=== PATIENT | female | born 1955 | race Caucasian/White ===

== ENCOUNTER 2017-10-31 08:39 | Emergency (ER) | payer OTHER, BC ==
[~2017-10-31] VITALS: Ht 167.6 cm; Wt 56.7 kg
--- OUTSIDE RECORDS SUMMARY | 2017-10-31 08:45 | XMS REPORT | Clinical Summary ---
Author Author User, LYNDA Hubbard [facility] Address Unknown Phone Allergies, Adverse Reactions, Alerts Allergy Name Reaction Description Start Date Severity Status Provider SULFA Critical Active Lore Hughes Conditions or Problems Problem Name Problem Code Onset Date Status Entry Date Provider Comment Standard Description Annotate WELL WOMAN V70.0 Resolved Lore Hughes Routine general medical examination at a health care facility MENOPAUSAL SYNDROME 627.0 Resolved Lore Hughes Premenopausal menorrhagia NECK PAIN 723.1 Resolved Lore Hughes Cervicalgia CERVICAL RADICULOPATHY 723.4 Resolved Lore Hughes Brachial neuritis or radiculitis NOS SCOLIOSIS, 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 Lore Hughes Scoliosis [and kyphoscoliosis], idiopathic DIZZINESS 780.4 Resolved Lore Hughes Dizziness and giddiness DEFECT, 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 Lore Hughes Other and unspecified coagulation defects MENORRHAGIA 626.2 Resolved Lore Hughes Excessive or frequent menstruation ANEMIA NOS 285.9 Active Lore Hughes Anemia, unspecified HYPERCHOLESTEROLEMIA 272.0 Active Lore Hughes Pure hypercholesterolemia GERD 530.81 Resolved Lore Hughes Esophageal reflux ABDOMINAL PAIN, GENERALIZED 789.07 Resolved Lore Hughes Abdominal pain, generalized SINUSITIS, SPHENOIDAL, ACUTE 461.3 Resolved Lore Hughes Acute sphenoidal sinusitis HERPES LABIALIS 054.9 Resolved Lore Hughes Herpes simplex without mention of complication HYPERGLYCEMIA, MILD 790.6 Resolved Lore Hughes Other abnormal blood chemistry ELBOW PAIN 719.42 Resolved Lore Hughes Pain in joint involving upper arm POLYARTHRALGIA 719.49 Resolved Lore Hughes Pain in joint involving multiple sites HEALTH SCREENING V70.0 Inactive Lore Hughes Routine general medical examination at a health care facility HYPERTENSION 401.1 Active Lore Hughes Benign essential hypertension EDEMA LEG 782.3 Active Lore Hughes Edema THYROID NODULE 241.0 Active Lore Hughes Nontoxic uninodular goiter MENOPAUSAL SYNDROME 627.0 Active Lore Hughes Premenopausal menorrhagia HEADACHE 784.0 Active Lore Hughes Headache HEAD INJURY, UNSPECIFIED 959.01 Active Lore Hughes Head injury, unspecified Medication List Medication Instructions Start Date Stop Date Generic Name ND Status Provider Patient Instruction PREMPRO 0.3-1.5 MG TABS 1 PO daily CONJ ESTROG-MEDROXYPROGEST AMBROCIO 76527056470 Active Lore Hughes SYNTHROID 137 MCG TABS 1 po daily LEVOTHYROXINE SODIUM 17074651473 Active Aisha Storm HYDROCHLOROTHIAZIDE 25 MG TAB 1 PO QD HYDROCHLOROTHIAZIDE 31699618750 Active Lore Hughes PREMARIN 0.625 MG TAB 1 PO daily as directed ESTROGENS CONJUGATED 18968284641 No Longer Active Loreobed Hughes TRINESSA (28) 0.18/0.215/0.25 MG-35 MCG TABS 1 po daily NORGESTIM-ETH ESTRAD TRIPHASIC 26338788777 No Longer Active Loreobed Hughes PEPCID 20 MG TAB 1 PO BID prn FAMOTIDINE 52630359131 Active Loreobed Hughes FLONASE 50 MCG/DOSE INHALANT 2 puffs each nostril daily FLONASE 50 MCG/DOSE INHALANT No Longer Active Loreobed Hughes OMEPRAZOLE 20 MG CPDR 1 PO daily OMEPRAZOLE 25205465217 No Longer Active Loreobed Hughes CARAFATE 1 GM TABS 1 PO 30 minutes before meals and at bedtime SUCRALFATE 59503867730 No Longer Active Loreobed Hughes ALBUTEROL 90 MCG/ACT AERS 2 puffs Q4-6hrs prn ALBUTEROL No Longer Active Lore Hughes CALTRATE 600 PLUS-VIT D 600-200 MG-IU TABS 1 PO DAILY CALCIUM-VITAMIN D Active Loreobed Hughes TRI-SPRINTEC 0.18/0.215/0.25 MG-35 MCG TABS 1 PO daily NORGESTIM-ETH ESTRAD TRIPHASIC 70491766239 No Longer Active Lore Hughes LIDOCAINE VISCOUS 2 % SOLN apply to small amount of lidocaine to affected areas TID prn LIDOCAINE HCL 85873928586 No Longer Active Lore Hughes FAMVIR 250 MG TABS 1 PO TID FAMCICLOVIR 43495793054 No Longer Active Sheri Gorman AUGMENTIN 500-125 MG TAB 1 PO BID AMOXICILLIN-POT CLAVULANATE 67185156679 No Longer Active Lore Hughes PREDNISONE 20 MG TAB 2 pills at once for 2 days then 1 pill daily for 2 days PREDNISONE 46261174807 No Longer Active Lore KULKARNI NASAL SPRAY (DEXAMETHASONE, GENTAMICIN, SALINE) 2 puffs each nostril BID for [address] KULKARNI NASAL SPRAY ( DEXAMETHASONE, GENTAMICIN, SALINE) No Longer Active Lore Hughes DIFLUCAN 100 MG TAB 1 po daily as directed FLUCONAZOLE 31681167656 No Longer Active Lore Hughes TERAZOL 7 0.4 % CREA 1 applicator full per vagina QHS for 7 days TERCONAZOLE VAGINAL 93152463875 No Longer Active Lore Hughes CLARITIN 10 MG TAB 1 PO daily LORATADINE 71920152993 Active Loreobed Hughes NEXIUM 40 MG CPDR 1 PO BID ESOMEPRAZOLE MAGNESIUM 60422331778 No Longer Active Lore Hughes WILTON-D 12 HOUR 60-120 MG TB12 1 po BID prn FEXOFENADINE- PSEUDOEPHEDRINE 20003581463 No Longer Active Lore Hughes WILTON 60 MG TABS 1 po daily FEXOFENADINE HCL 51622097292 No Longer Active Lore Hughes Immunizations Vaccine Administration Date Value Standard Description Influenza vaccine given done influenza virus vaccine, unspecified formulation Influenza vaccine given Done influenza virus vaccine, unspecified formulation Influenza vaccine given done at [facility] [place] influenza virus vaccine, unspecified formulation Vital Signs Date Name Value Unit Range Description blood pressure, diastolic - 8462-4 78 mm[Hg] BP tamayo blood pressure, systolic - 8480-6 126 mm[Hg] BP sys pulse rate E&M - 8867-4 68 /min Heart rate respiratory rate E&M - 9279-1 14 /min Resp rate temperature E&M 98.2 [degF] Body temperature weight E&M - 3141-9 142 [lb_av] Weight Measured blood pressure, diastolic - 8462-4 74 mm[Hg] BP tamayo blood pressure, systolic - 8480-6 126 mm[Hg] BP sys pulse rate E&M - 8867-4 80 /min Heart rate respiratory rate E&M - 9279-1 14 /min Resp rate temperature E&M 98.6 [degF] Body temperature Diagnostic Results Date Name Value Unit Range Description Clinical Lists Update: BUN,CREATININE - Chemistry Estimated Glomerular Filtration Rate (calc) 78 mL/min/1.73m2 urea nitrogen, blood 12 mg/dL creatinine, serum 0.76 mg/dL Encounters Code Encounter Date Provider Facility CPT-37875 Ofc Vst, Est Level IV 15:30:52 GLOBAL PROGRAM MANAGER Lore Hughes [facility] CPT-43960 Ofc Vst, Est Level III 15:05:17 GLOBAL PROGRAM MANAGER Lore Hughes DO, FACP CPT-01837 Ofc Vst, Est Level IV 13:18:37 CDT Lore Hughes DO, FACP CPT-37876 Ofc Vst, Est Level IV 19:48:51 GLOBAL PROGRAM MANAGER Lore Hguhes [facility] CPT-44715 Ofc Vst, Est Level IV 11:41:35 CDT Lore Hughes DO, FACP CPT-78347 Ofc Vst, Est Level III 13:26:49 GLOBAL PROGRAM MANAGER Lore Hughes [facility] CPT-97037 Ofc Vst, Est Level III 14:10:50 CDT Lore Hughes [facility] CPT-01397 Ofc Vst, Est Level III 12:23:22 CDT Lore Hughes DO, FACP CPT-85553 Ofc Vst, Est Level IV 13:06:23 CDT Lore Queenie Hughes Lore S Hughes, DO, FACP CPT-05759 Ofc Vst, Est Level III 15:19:12 CDT Lore Duarte Hughes, DO, FACP CPT-58173 Ofc Vst, Est Level III 16:47:29 CDT Lore Duarte Hughes, DO, FACP CPT-77896 Ofc Vst, Est Level IV 15:49:25 CDT Lore Willsner, DO, FACP CPT-56331 Ofc Vst, Est Level III 16:38:51 GLOBAL PROGRAM MANAGER Lore Duarte Hughes, DO, FACP CPT-60421 Ofc Vst, Est Level III 16:12:01 GLOBAL PROGRAM MANAGER Lore Duarte Hughes, DO, FACP Procedures Code Procedure Name Date Entry Date Standard Description CPT-23029 Preventive, Est, (40-64) 15:35:27 GLOBAL PROGRAM MANAGER CPT-33002 Preventive, Est, (40-64) 17:21:15 CDT CPT-70545 Handling of specimen from office to lab 17:21:15 CDT CPT-05630 Preventive, Est, (40-64) 10:32:09 GLOBAL PROGRAM MANAGER CPT-68719 Handling of specimen from office to lab 10:32:09 GLOBAL PROGRAM MANAGER CPT-55002 Preventive, Est, (40-64) 11:51:19 GLOBAL PROGRAM MANAGER CPT-17440 Handling of specimen from office to lab 11:51:19 GLOBAL PROGRAM MANAGER CPT-24590 Preventive, Est, (40-64) 10:44:35 GLOBAL PROGRAM MANAGER CPT-89714 Handling of specimen from office to lab 10:44:35 GLOBAL PROGRAM MANAGER CPT-38103 Preventive, Est, (40-64) 10:03:02 CDT CPT-79504 Handling of specimen from office to lab 10:03:02 CDT
--- OUTSIDE RECORDS SUMMARY | 2017-10-31 08:45 | XMS REPORT | Clinical Summary ---
Author Author [facility] Organization [facility] Address Unknown Phone Unavailable Care Team Providers Care Business Performance Advisor Name Role Phone Lore Hughes DO PCP Randell Schmidt MD Unavailable Source Comments Some departments are not documenting in the electronic medical record. If you do not see the information that you expected, contact Release of Information in the Health Information Management department at [phone] for further assistance in locating additional records.[facility] Allergies Active Allergy Reactions Severity Noted Date Comments Shrimp ITCHING 03/16/2014 Sulfa (Sulfonamide HIVES 03/16/2014 Antibiotics) Current Medications No known medications Active Problems No known active problems Family History Medical History Relation Name Comments Allergy-severe Brother Asthma Brother Hypertension Father Hypertension Mother Relation Name Status Comments Brother Father Alive Mother Alive Social History Tobacco Use Types Packs/Day Years Used Date Never Smoker Smokeless Tobacco: Never Used Alcohol Use Drinks/Week oz/Week Comments Yes Sex Assigned at Date Recorded Not on file Last Filed Vital Signs Vital Sign Reading Time Taken Blood Pressure 142/83 03/16/2014 8:13 AM CDT Pulse 54 03/16/2014 8:13 AM CDT Temperature - - Respiratory Rate - - Oxygen Saturation - - Inhaled Oxygen - - Concentration Weight 63.9 kg (140 lb 12.8 oz) 03/16/2014 8:13 AM CDT Height 158.8 cm (5' 2.5") 03/16/2014 8:13 AM CDT Body Mass Index 25.34 03/16/2014 8:13 AM CDT Plan of Treatment Health Maintenance Due Date Last Done Comments HEPATITIS C SCREENING 1955 PHYSICAL (COMPREHENSIVE) 1962 EXAM PERTUSSIS VACCINE 1966 TETANUS VACCINE 1972 CERVICAL CANCER SCREENING 1985 BREAST CANCER SCREENING 1995 COLORECTAL CANCER 2005 SCREENING SHINGLES VACCINE 2015 INFLUENZA VACCINE 04/01/2018 Results Not on filefrom Last 3 Months
--- OUTSIDE RECORDS SUMMARY | 2017-10-31 08:46 | XMS REPORT | Clinical Summary ---
Author Author User, LYNDA Hubbard [facility] Address Unknown Phone Allergies, Adverse Reactions, [...] Instructions Start Date Stop Date Generic Name NDC Status Provider Patient Instruction PREMPRO 0.3-1.5 MG TABS 1 PO daily CONJ ESTROG-MEDROXYPROGEST AMBROCIO 99073668672 Active Lore Hughes SYNTHROID 137 MCG TABS 1 po daily LEVOTHYROXINE SODIUM 01091540772 Active Aisha Storm HYDROCHLOROTHIAZIDE 25 MG TAB 1 PO QD HYDROCHLOROTHIAZIDE 19159667973 Active Lore Hughes PREMARIN 0.625 MG TAB 1 PO daily as directed ESTROGENS CONJUGATED 11342917293 No Longer Active Loreobed Hughes TRINESSA (28) 0.18/0.215/0.25 MG-35 MCG TABS 1 po daily NORGESTIM-ETH ESTRAD TRIPHASIC 37334166294 No Longer Active Loreobed Hughes PEPCID 20 MG TAB 1 PO BID prn FAMOTIDINE 86217707103 Active Loreobed Hughes FLONASE 50 MCG/DOSE INHALANT 2 puffs each nostril daily FLONASE 50 MCG/DOSE INHALANT No Longer Active Loreobed Hughes OMEPRAZOLE 20 MG CPDR 1 PO daily OMEPRAZOLE 09793096579 No Longer Active Loreobed Hughes CARAFATE 1 GM TABS 1 PO 30 minutes before meals and at bedtime SUCRALFATE 21993941258 No Longer Active Lore Hughes ALBUTEROL 90 MCG/ACT AERS 2 puffs Q4-6hrs prn ALBUTEROL No Longer Active Lore Hughes CALTRATE 600 PLUS-VIT D 600-200 MG-IU TABS 1 PO DAILY CALCIUM-VITAMIN D Active Loreobed Hughes TRI-SPRINTEC 0.18/0.215/0.25 MG-35 MCG TABS 1 PO daily NORGESTIM-ETH ESTRAD TRIPHASIC 70252350610 No Longer Active Lore Hughes LIDOCAINE VISCOUS 2 % SOLN apply to small amount of lidocaine to affected areas TID prn LIDOCAINE HCL 48217812735 No Longer Active Lore Hughes FAMVIR 250 MG TABS 1 PO TID FAMCICLOVIR 22183491917 No Longer Active Sheri Gorman AUGMENTIN 500-125 MG TAB 1 PO BID AMOXICILLIN-POT CLAVULANATE 18320028369 No Longer Active Lore Hughes PREDNISONE 20 MG TAB 2 pills at once for 2 days then 1 pill daily for 2 days PREDNISONE 50213086737 No Longer Active Lore KULKARNI NASAL SPRAY (DEXAMETHASONE, GENTAMICIN, SALINE) 2 puffs each nostril BID for [address] KULKARNI NASAL SPRAY ( DEXAMETHASONE, GENTAMICIN, SALINE) No Longer Active Lore Hughes DIFLUCAN 100 MG TAB 1 po daily as directed FLUCONAZOLE 45386590568 No Longer Active Lore Hughes TERAZOL 7 0.4 % CREA 1 applicator full per vagina QHS for 7 days TERCONAZOLE VAGINAL 47588377935 No Longer Active Lore Hughes CLARITIN 10 MG TAB 1 PO daily LORATADINE 56336190502 Active Loreobed Hughes NEXIUM 40 MG CPDR 1 PO BID ESOMEPRAZOLE MAGNESIUM 05900371953 No Longer Active Lore Hughes WILTON-D 12 HOUR 60-120 MG TB12 1 po BID prn FEXOFENADINE- PSEUDOEPHEDRINE 37090740863 No Longer Active Lore Hughes WILTON 60 MG TABS 1 po daily FEXOFENADINE HCL 60347733598 No Longer Active Lore Hughes Immunizations Vaccine Administration Date Value Standard Description Influenza vaccine given done influenza virus vaccine, unspecified formulation Influenza vaccine given Done influenza virus vaccine, unspecified formulation Influenza vaccine given done at [facility] [place] influenza virus vaccine, unspecified formulation Vital Signs [...] mg/dL Encounters Code Encounter Date Provider Facility CPT-69444 Ofc Vst, Est Level IV 15:30:52 SUPERVISOR INTELLIGENCE ANALYST Lore Hughes [facility] CPT-68793 Ofc Vst, Est Level III 15:05:17 SUPERVISOR INTELLIGENCE ANALYST Lore Hughes DO, FACP CPT-98577 Ofc Vst, Est Level IV 13:18:37 CDT Lore Hughes DO, FACP CPT-61209 Ofc Vst, Est Level IV 19:48:51 SUPERVISOR INTELLIGENCE ANALYST Lore Hughes [facility] CPT-86547 Ofc Vst, Est Level IV 11:41:35 CDT Lore Hughes DO, FACP CPT-15336 Ofc Vst, Est Level III 13:26:49 SUPERVISOR INTELLIGENCE ANALYST Lore Hughes [facility] CPT-34695 Ofc Vst, Est Level III 14:10:50 CDT Lore Hughes [facility] CPT-91596 Ofc Vst, Est Level III 12:23:22 CDT Lore Hughes DO, FACP CPT-52378 Ofc Vst, Est Level IV 13:06:23 CDT Lore Queenie Hughes Lore S Hughes, DO, FACP CPT-38118 Ofc Vst, Est Level III 15:19:12 CDT Lore Duarte Hughes, DO, FACP CPT-51315 Ofc Vst, Est Level III 16:47:29 CDT Lore Duarte Hughes, DO, FACP CPT-55400 Ofc Vst, Est Level IV 15:49:25 CDT Lore Duarte Hughes, DO, FACP CPT-66258 Ofc Vst, Est Level III 16:38:51 SUPERVISOR INTELLIGENCE ANALYST Lore Duarte Saul, DO, FACP CPT-80666 Ofc Vst, Est Level III 16:12:01 SUPERVISOR INTELLIGENCE ANALYST Lore Duarte Hughes, DO, FACP Procedures Code Procedure Name Date Entry Date Standard Description CPT-30480 Preventive, Est, (40-64) 15:35:27 SUPERVISOR INTELLIGENCE ANALYST CPT-05759 Preventive, Est, (40-64) 17:21:15 CDT CPT-67231 Handling of specimen from office to lab 17:21:15 CDT CPT-33401 Preventive, Est, (40-64) 10:32:09 SUPERVISOR INTELLIGENCE ANALYST CPT-24566 Handling of specimen from office to lab 10:32:09 SUPERVISOR INTELLIGENCE ANALYST CPT-86197 Preventive, Est, (40-64) 11:51:19 SUPERVISOR INTELLIGENCE ANALYST CPT-37893 Handling of specimen from office to lab 11:51:19 SUPERVISOR INTELLIGENCE ANALYST CPT-70170 Preventive, Est, (40-64) 10:44:35 SUPERVISOR INTELLIGENCE ANALYST CPT-41544 Handling of specimen from office to lab 10:44:35 SUPERVISOR INTELLIGENCE ANALYST CPT-81896 Preventive, Est, (40-64) 10:03:02 CDT CPT-96079 Handling of specimen from office to lab 10:03:02 CDT
--- OUTSIDE RECORDS SUMMARY | 2017-10-31 08:46 | XMS REPORT | Clinical Summary ---
Author Author User, LYNDA Hubbard [facility] Address Unknown Phone Allergies, Adverse Reactions, [...] Hughes Pure hypercholesterolemia GERD 530.81 Resolved Lore Hughse Esophageal reflux ABDOMINAL PAIN, GENERALIZED 789.07 Resolved [...] TABS 1 PO daily CONJ ESTROG-MEDROXYPROGEST AMBROCIO 57493137399 Active Lore Hughes SYNTHROID 137 MCG TABS 1 po daily LEVOTHYROXINE SODIUM 48468782803 Active Aisha Storm HYDROCHLOROTHIAZIDE 25 MG TAB 1 PO QD HYDROCHLOROTHIAZIDE 08974938399 Active Lore Hughes PREMARIN 0.625 MG TAB 1 PO daily as directed ESTROGENS CONJUGATED 57615820360 No Longer Active Loreobed Hughes TRINESSA (28) 0.18/0.215/0.25 MG-35 MCG TABS 1 po daily NORGESTIM-ETH ESTRAD TRIPHASIC 47428560315 No Longer Active Loreobed Hughes PEPCID 20 MG TAB 1 PO BID prn FAMOTIDINE 46560476611 Active Loreobed Hughes FLONASE 50 MCG/DOSE INHALANT 2 puffs each nostril daily FLONASE 50 MCG/DOSE INHALANT No Longer Active Loreobed Hughes OMEPRAZOLE 20 MG CPDR 1 PO daily OMEPRAZOLE 86685819155 No Longer Active Loreobed Hughes CARAFATE 1 GM TABS 1 PO 30 minutes before meals and at bedtime SUCRALFATE 31857741260 No Longer Active Loreobed Hughes ALBUTEROL 90 MCG/ACT AERS 2 puffs Q4-6hrs prn ALBUTEROL No Longer Active Lore Hughes CALTRATE 600 PLUS-VIT D 600-200 MG-IU TABS 1 PO DAILY CALCIUM-VITAMIN D Active Loreobed Hughes TRI-SPRINTEC 0.18/0.215/0.25 MG-35 MCG TABS 1 PO daily NORGESTIM-ETH ESTRAD TRIPHASIC 93377902381 No Longer Active Lore Hughes LIDOCAINE VISCOUS 2 % SOLN apply to small amount of lidocaine to affected areas TID prn LIDOCAINE HCL 89021784917 No Longer Active Lore Hughes FAMVIR 250 MG TABS 1 PO TID FAMCICLOVIR 58061993199 No Longer Active Sheri Gorman AUGMENTIN 500-125 MG TAB 1 PO BID AMOXICILLIN-POT CLAVULANATE 92393727406 No Longer Active Lore Hughes PREDNISONE 20 MG TAB 2 pills at once for 2 days then 1 pill daily for 2 days PREDNISONE 58604117935 No Longer Active Lore KULKARNI NASAL SPRAY (DEXAMETHASONE, GENTAMICIN, SALINE) 2 puffs each nostril BID for [address] KULKARNI NASAL SPRAY ( DEXAMETHASONE, GENTAMICIN, SALINE) No Longer Active Lore Hughes DIFLUCAN 100 MG TAB 1 po daily as directed FLUCONAZOLE 34585766224 No Longer Active Lore Hughes TERAZOL 7 0.4 % CREA 1 applicator full per vagina QHS for 7 days TERCONAZOLE VAGINAL 13144721448 No Longer Active Lore Hughes CLARITIN 10 MG TAB 1 PO daily LORATADINE 75303328847 Active Loreobed Hughes NEXIUM 40 MG CPDR 1 PO BID ESOMEPRAZOLE MAGNESIUM 60841267568 No Longer Active Lore Hughes WILTON-D 12 HOUR 60-120 MG TB12 1 po BID prn FEXOFENADINE- PSEUDOEPHEDRINE 42506400388 No Longer Active Lore Hughes WILTON 60 MG TABS 1 po daily FEXOFENADINE HCL 34931288748 No Longer Active Lore Hughes Immunizations Vaccine Administration Date Value Standard Description Influenza vaccine given done influenza virus vaccine, unspecified formulation Influenza vaccine given Done influenza virus vaccine, unspecified formulation Influenza vaccine given done at [facility] [place] influenza virus vaccine, unspecified formulation Vital Signs [...] mg/dL Encounters Code Encounter Date Provider Facility CPT-99063 Ofc Vst, Est Level IV 15:30:52 ASTROCHEMIST Lore Hughes [facility] CPT-65670 Ofc Vst, Est Level III 15:05:17 ASTROCHEMIST Lore Hughes DO, FACP CPT-28112 Ofc Vst, Est Level IV 13:18:37 CDT Lore Hughes DO, FACP CPT-88321 Ofc Vst, Est Level IV 19:48:51 ASTROCHEMIST Lore Hughes [facility] CPT-37405 Ofc Vst, Est Level IV 11:41:35 CDT Lore Hughes DO, FACP CPT-34931 Ofc Vst, Est Level III 13:26:49 ASTROCHEMIST Lore Hughes [facility] CPT-26604 Ofc Vst, Est Level III 14:10:50 CDT Lore Hughes [facility] CPT-03772 Ofc Vst, Est Level III 12:23:22 CDT Lore Hughes DO, FACP CPT-59413 Ofc Vst, Est Level IV 13:06:23 CDT Lore Queenie Hughes Lore S Hughes, DO, FACP CPT-96327 Ofc Vst, Est Level III 15:19:12 CDT Lore Duarte Hughes, DO, FACP CPT-58717 Ofc Vst, Est Level III 16:47:29 CDT Lore Duarte Hughes, DO, FACP CPT-37446 Ofc Vst, Est Level IV 15:49:25 CDT Lore Willsner, DO, FACP CPT-78374 Ofc Vst, Est Level III 16:38:51 ASTROCHEMIST Lore Duarte Hughes, DO, FACP CPT-04267 Ofc Vst, Est Level III 16:12:01 ASTROCHEMIST Lore Duarte Hughes, DO, FACP Procedures Code Procedure Name Date Entry Date Standard Description CPT-82240 Preventive, Est, (40-64) 15:35:27 ASTROCHEMIST CPT-11058 Preventive, Est, (40-64) 17:21:15 CDT CPT-70289 Handling of specimen from office to lab 17:21:15 CDT CPT-12894 Preventive, Est, (40-64) 10:32:09 ASTROCHEMIST CPT-59412 Handling of specimen from office to lab 10:32:09 ASTROCHEMIST CPT-25720 Preventive, Est, (40-64) 11:51:19 ASTROCHEMIST CPT-45656 Handling of specimen from office to lab 11:51:19 ASTROCHEMIST CPT-19581 Preventive, Est, (40-64) 10:44:35 ASTROCHEMIST CPT-77042 Handling of specimen from office to lab 10:44:35 ASTROCHEMIST CPT-69203 Preventive, Est, (40-64) 10:03:02 CDT CPT-48698 Handling of specimen from office to lab 10:03:02 CDT
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
[2017-10-31 09:59] LABS: BASOPHILS # (AUTO) 0.1 10^3/uL (0.0-0.1); BASOPHILS % (AUTO) 1 % (0-10); EOSINOPHILS # (AUTO) 0.2 10^3/uL (0.0-0.3); EOSINOPHILS % (AUTO) 2 % (0-10); HEMATOCRIT 41 % (35-52); HEMOGLOBIN 14.5 G/DL (11.5-16.0); LYMPHOCYTES # (AUTO) 1.7 X 10^3 (1.0-4.0); LYMPHOCYTES % (AUTO) 19 % (12-44); MEAN CORPUSCULAR HEMOGLOBIN 31 PG (25-34); MEAN CORPUSCULAR HGB CONC 35 G/DL (32-36); MEAN CORPUSCULAR VOLUME 89 FL (80-99); MEAN PLATELET VOLUME 9.7 FL (7.4-10.4); MONOCYTES # (AUTO) 0.8 X 10^3 (0.0-1.0); MONOCYTES % (AUTO) 9 % (0-12); NEUTROPHILS # (AUTO) 6.3 X 10^3 (1.8-7.8); NEUTROPHILS % (AUTO) 69 % (42-75); PLATELET COUNT 379 10^3/uL (130-400); RED BLOOD COUNT 4.62 10^6/uL (4.35-5.85); RED CELL DISTRIBUTION WIDTH 12.3 % (10.0-14.5)
[2017-10-31 10:19] LABS: PROTHROMBIN TIME PATIENT 13.1 SEC (12.2-14.7)
[2017-10-31 11:12] VITALS: BP 143/82
== END 2017-10-31 11:12 | disposition home or self-care (01) ==
LOC: EDUNIT# 08:39 → ER 08:41
DX: R07.89 Other chest pain (principal); D66 Hereditary factor VIII deficiency; R40.2142 Coma scale, eyes open, spontaneous, at arrival to emergency department; R40.2252 Coma scale, best verbal response, oriented, at arrival to emergency department; R40.2362 Coma scale, best motor response, obeys commands, at arrival to emergency department; Z88.2 Allergy status to sulfonamides; V49.60XA Unspecified car occupant injured in collision with unspecified motor vehicles in traffic accident, initial encounter
CPT/HCPCS: 36415; 71046; 85025; 85610; 85730

== ENCOUNTER 2018-09-29 06:23 | Outpatient (CLI) | payer BC ==
[~2018-09-29] VITALS: Ht 157.5 cm; Wt 63.5 kg
[2018-09-29] MEDS ORDERED: AMLO5TAB9 PO (14:09)
[2018-09-29] MEDS ORDERED: CETI10TA20 PO (14:09)
[2018-09-29] MEDS ORDERED: LEVO125T PO (14:09)
[2018-09-29] MEDS ORDERED: HYDR25TA4 PO (14:09)
== END 2018-09-29 14:10 | disposition home or self-care (01) ==
LOC: PREOP 06:23
PROVIDERS: ATTEND Specialist
DX: Z01.818 Encounter for other preprocedural examination (principal)

== ENCOUNTER 2018-10-02 09:04 | Day surgery (SDC) | payer BC, OTHER ==
[~2018-10-02] VITALS: Ht 157.5 cm; Wt 63.5 kg
[~2018-10-02 09:04] MED LIST: AMLO5TAB9 PO; CETI10TA20 PO; HYDR25TA4 PO; LEVO125T PO
[2018-10-02 09:12] VITALS: BP 139/82
--- OUTSIDE RECORDS SUMMARY | 2018-10-02 09:12 | XMS REPORT | Clinical Summary ---
Author Author [facility] Organization [facility] Address Unknown Phone Unavailable Care Team Providers Care Joint Sealer Name Role Phone Lore Hughes DO PCP Unavailable Randell Schmidt MD Unavailable Source Comments Some departments are not documenting in the electronic medical record. If you do not see the information that you expected, contact Release of Information in the Health Information Management department at [phone] for further assistance in locating additional records.[facility] Allergies Comments Active Allergy Reactions Severity Noted Date Shrimp ITCHING 03/16/2014 Sulfa (Sulfonamide HIVES 03/16/2014 Antibiotics) Medications No known medications Active Problems No known active problems Family History Medical History Relation Name Comments Allergy-severe Brother Asthma Brother Hypertension Father Hypertension Mother Relation Name Status Comments Brother Father Alive Mother Alive Social History Date Tobacco Use Types Packs/Day Years Used Never Smoker Smokeless Tobacco: Never Used Alcohol Use Drinks/Week oz/Week Comments Yes Sex Assigned at Date Recorded Not on file Industry Job Start Date Occupation Not on file Not on file Not on file Travel End Travel History Travel Start No recent travel history available. Last Filed Vital Signs Time Taken Vital Sign Reading 03/16/2014 8:13 AM CDT Blood Pressure 142/83 03/16/2014 8:13 AM CDT Pulse 54 - Temperature - - Respiratory Rate - - Oxygen Saturation - - Inhaled Oxygen - Concentration 03/16/2014 8:13 AM CDT Weight 63.9 kg (140 lb 12.8 oz) 03/16/2014 8:13 AM CDT Height 158.8 cm (5' 2.5") 03/16/2014 8:13 AM CDT Body Mass Index 25.34 Plan of Treatment Health Maintenance Due Date Last Done Comments HEPATITIS C SCREENING 1955 PHYSICAL (COMPREHENSIVE) 1962 EXAM HIV SCREENING 1970 DTAP/TDAP VACCINES (1 - 1973 Tdap) CERVICAL CANCER SCREENING 1985 BREAST CANCER SCREENING 1995 COLORECTAL CANCER 2005 SCREENING SHINGLES RECOMBINANT 2005 VACCINE (1 of 2) INFLUENZA VACCINE 04/01/2018 Results Not on filefrom Last 3 Months Insurance Payer Benefit Subscriber ID Type Phone Address Plan / Group BCBS [facility] xxxxxxxxxxxx PPO [facility] BLUE Advance Directives Patient has advance care planning documents on file. For more information, please contact: [facility] [address] [place] [address]
--- OUTSIDE RECORDS SUMMARY | 2018-10-02 09:12 | XMS REPORT | Clinical Summary ---
Author Author [facility] Organization [facility] Address Unknown Phone Unavailable Care Team Providers Care Counter Helper Name Role Phone PCP Unavailable Allergies Not on File Current Medications Not on file Active Problems Not on file Social History Tobacco Use Types Packs/Day Years Used Date Never Assessed Sex Assigned at Date Recorded Not on file Last Filed Vital Signs Not on file Plan of Treatment Not on file Results Not on filefrom Last 3 Months
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
[2018-10-02] MEDS ORDERED: POVIDONE (BETADINE) OPHTH SOLN 5% 30 ML OP ONE (09:15)
[2018-10-02] MEDS ORDERED: LIDOCAINE PF 1% 2 ML AMP IR PRN (09:15)
[2018-10-02] MEDS ORDERED: MOXIFLOXACIN OPHTH SOLN 5 MG/ML 0.3 ML SYRINGE OP ONE (09:15)
[2018-10-02] MEDS ORDERED: TIMOLOL MALEATE 0.5% 5 ML (TIMOPTIC) BTL OU PRN (09:15)
[2018-10-02] MEDS: TETRACAINE 0.5% OPHTH SOLN 4 ML BTL (SINGLE DOSE ONLY) OU PRN ×4 (09:23→09:49)
[2018-10-02] MEDS: CYCLOPENTOLATE 1% (CYCLOGYL) 2 ML DROPS OP SCH ×3 (09:29→09:49)
[2018-10-02] MEDS: PHENYLEPHRINE 10% OPHTH (NEO-SYN) 5 ML BTL OU SCH ×3 (09:29→09:49)
[2018-10-02] MEDS ORDERED: MIDAZOLAM 2 MG/2 ML (VERSED) VIAL ONE (09:54)
--- NOTE | 2018-10-02 09:57 | Ophthalmologist Pre-Op Note ---
Pre-Operative Progress Note H&P Reviewed The H&P was reviewed, patient examined and no changes noted. Date H&P Reviewed: Oct 02, 2018 Time H&P Reviewed: 09:56 Pre-Op Dx Cataract, Left Eye BRENT JEONG MD Oct 02, 2018 09:56
--- NOTE | 2018-10-02 10:14 | Ophthalmology Operative Report ---
Cataract removal/placement IOL PREOPERATIVE DIAGNOSIS: Cataract Left Eye POSTOPERATIVE DIAGNOSIS: Cataract Left Eye PROCEDURE: Cataract removal and placement of posterior chamber implant, left eye SURGEON: Taco Jeong ANESTHESIA: Topical with sedation COMPLICATIONS: None ESTIMATED BLOOD LOSS: Minimal DESCRIPTION OF PROCEDURE: After proper informed consent was obtained, the patient, a 63 female, was taken to the Operating Room and the left eye was anesthetized with tetracaine. The left eye was then prepped and draped in the usual manner. A wire lid speculum was placed. A paracentesis was made at the left hand position. Preservative free lidocaine was injected into the anterior chamber followed by viscoelastic. A clear corneal incision was made in the temporal position. A capsulorrhexis was preformed and the central nuclear and cortical material were removed. The posterior capsule was polished and an Saul 15.5 [id number] was placed into the capsular bag. The residual viscoelastic was aspirated and balanced saline solution was injected into the anterior chamber. Moxifloxacin was injected into the anterior chamber. The wound was checked and found to be water tight. The patient tolerated the procedure well without complications. TACO JEONG MD Oct 02, 2018 10:14
[2018-10-02 10:21] VITALS: BP 119/69
--- NOTE | 2018-10-02 12:55 | Anesthesia-General Post-Op ---
MAC Patient Condition Mental Status/LOC: Same as Preop Cardiovascular: Satisfactory Nausea/Vomiting: Absent Respiratory: Satisfactory Pain: Controlled Complications: Absent Post Op Complications Complications None Follow Up Care/Instructions Patient Instructions None needed. Anesthesiology Discharge Order Discharge Order Patient is doing well, no complaints, stable vital signs, no apparent adverse anesthesia problems. No complications reported per nursing. SARAH HERNÁNDEZ CRNA Oct 02, 2018 12:55
== END 2018-10-02 10:22 | disposition home or self-care (01) ==
LOC: SDC 09:04
PROVIDERS: ATTEND Specialist
DX: H25.11 Age-related nuclear cataract, right eye (principal); I10 Essential (primary) hypertension; J45.909 Unspecified asthma, uncomplicated; K21.9 Gastro-esophageal reflux disease without esophagitis; E03.9 Hypothyroidism, unspecified; Z79.899 Other long term (current) drug therapy

== ENCOUNTER 2018-10-09 05:40 | Outpatient (CLI) | payer BC | END 2018-10-09 14:56 | disposition home or self-care (01) | LOC: PREOP 05:40 | PROVIDERS: ATTEND Specialist | DX: Z01.818 Encounter for other preprocedural examination (principal) ==

== ENCOUNTER 2018-10-16 07:05 | Day surgery (SDC) | payer BC, OTHER ==
[~2018-10-16] VITALS: Ht 157.5 cm; Wt 63.5 kg
[2018-10-16 07:05] VITALS: BP 132/87
[2018-10-16] MEDS ORDERED: CYCLOPENTOLATE 1% (CYCLOGYL) 2 ML DROPS OP SCH (07:15)
[2018-10-16] MEDS ORDERED: PHENYLEPHRINE 10% OPHTH (NEO-SYN) 5 ML BTL OU SCH (07:15)
[2018-10-16] MEDS ORDERED: MOXIFLOXACIN OPHTH SOLN 5 MG/ML 0.3 ML SYRINGE OP ONE (07:15)
[2018-10-16] MEDS ORDERED: TIMOLOL MALEATE 0.5% 5 ML (TIMOPTIC) BTL OU PRN (07:15)
[2018-10-16] MEDS ORDERED: TETRACAINE 0.5% OPHTH SOLN 4 ML BTL (SINGLE DOSE ONLY) OU PRN (07:15)
[2018-10-16] MEDS ORDERED: LIDOCAINE PF 1% 2 ML AMP IR PRN (07:15)
[2018-10-16] MEDS ORDERED: POVIDONE (BETADINE) OPHTH SOLN 5% 30 ML OP ONE (07:15)
--- NOTE | 2018-10-16 08:02 | Ophthalmologist Pre-Op Note ---
Pre-Operative Progress Note H&P Reviewed The H&P was reviewed, patient examined and no changes noted. Date H&P Reviewed: Oct 16, 2018 Time H&P Reviewed: 08:02 Pre-Op Dx Cataract, Right Eye BRENT JEONG MD Oct 16, 2018 08:02
[2018-10-16] MEDS ORDERED: MIDAZOLAM 2 MG/2 ML (VERSED) VIAL ONE (08:03)
--- NOTE | 2018-10-16 08:24 | Ophthalmology Operative Report ---
Cataract removal/placement IOL PREOPERATIVE DIAGNOSIS: Cataract Right Eye POSTOPERATIVE DIAGNOSIS: Cataract Right Eye PROCEDURE: Cataract removal and placement of posterior chamber implant, right eye SURGEON: Taco Jeong ANESTHESIA: Topical with sedation COMPLICATIONS: None ESTIMATED BLOOD LOSS: Minimal DESCRIPTION OF PROCEDURE: After proper informed consent was obtained, the patient, a 63 female, was taken to the Operating Room and the right eye was anesthetized with tetracaine. The right eye was then prepped and draped in the usual manner. A wire lid speculum was placed. A paracentesis was made at the left hand position. Preservative free lidocaine was injected into the anterior chamber followed by viscoelastic. A clear corneal incision was made in the temporal position. A capsulorrhexis was preformed and the central nuclear and cortical material were removed. The posterior capsule was polished and Saul [id number] 15.0 IOL was placed into the capsular bag. The residual viscoelastic was aspirated and balanced saline solution was injected into the anterior chamber. Moxifloxacin was injected into the anterior chamber. The wound was checked and found to be water tight. The patient tolerated the procedure well without complications. TACO JEONG MD Oct 16, 2018 08:24
[2018-10-16 08:30] VITALS: BP 129/73
--- NOTE | 2018-10-16 13:08 | Anesthesia-General Post-Op ---
MAC Patient Condition Mental Status/LOC: Same as Preop Cardiovascular: Satisfactory Nausea/Vomiting: Absent Respiratory: Satisfactory Pain: Controlled Complications: Absent Post Op Complications Complications None Follow Up Care/Instructions Patient Instructions None needed. Anesthesiology Discharge Order Discharge Order Patient is doing well, no complaints, stable vital signs, no apparent adverse anesthesia problems. No complications reported per nursing. STEPHANE PLATT CRNA Oct 16, 2018 13:08
== END 2018-10-16 08:30 | disposition home or self-care (01) ==
LOC: SDC 07:05
PROVIDERS: ATTEND Specialist
DX: H25.11 Age-related nuclear cataract, right eye (principal); J45.909 Unspecified asthma, uncomplicated; E03.9 Hypothyroidism, unspecified; D68.311 Acquired hemophilia; Z79.899 Other long term (current) drug therapy

== ENCOUNTER → 2022-05-17 | Outpatient (CLI) | payer BC ==
[~2022-05-17] MED LIST changes: +AMLO-250 PO; -AMLO5TAB9 PO; -CETI10TA20 PO; +CETI10TA49 PO
--- NOTE | 2022-05-17 11:47 | Diagnostic Imaging Report ---
INDICATION: Routine screening. COMPARISON is made with prior mammograms 05/09/2021 and 12/16/2019. 2-D and 3-D bilateral screening mammography was performed with CAD. Both breasts are heterogeneously dense, limiting the sensitivity of mammography. A circumscribed density has developed in the central left breast just lateral to the nipple line approximately 3 cm from the nipple. This may represent a cyst. Further evaluation with ultrasound is recommended. Right breast is unremarkable. No malignant-appearing microcalcifications are seen. Axillae are unremarkable. IMPRESSION: BI-RADS 0 Left breast density. Further evaluation with ultrasound is recommended. ACR BI-RADS Category 0: Incomplete. (Needs additional imaging evaluation). Result letter will be mailed to the patient. Note: At least 10% of breast cancer is not imaged by mammography. Dictated by: Dictated on workstation # [id number]
== END ==
LOC: RAD 08:00
PROVIDERS: ATTEND Internal Medicine
DX: Z12.31 Encounter for screening mammogram for malignant neoplasm of breast (principal)
CPT/HCPCS: 77063; 77067

== ENCOUNTER → 2022-05-24 | Outpatient (CLI) | payer BC ==
--- NOTE | 2022-05-24 17:07 | Diagnostic Imaging Report ---
INDICATION: Abnormal recent mammogram demonstrating a circumscribed density in the retroareolar left breast. Study was performed for further evaluation. EXAMINATION: Left breast ultrasound. COMPARISON: Correlation is made with screening mammogram from 05/17/2022. FINDINGS: There is a simple appearing cyst at the 4:00 location of left breast, 2-3 cm from the nipple, measuring 9 mm x 9 mm x 10 mm. Second cyst is seen at the 3:00 location, 1 cm from the nipple, measuring 1.2 x 0.9 x 1.3 cm. This likely accounts for the mammographic density. No solid masses are seen. IMPRESSION: Simple cyst of left breast, likely accounting for the mammographic density. Patient may return to routine annual screening mammography. ACR BI-RADS Category 2: Benign findings. Result letter will be mailed to the patient. Note: At least 10% of breast cancer is not imaged by mammography. Dictated by: Dictated on workstation # [id number]
== END ==
LOC: RAD 13:15
PROVIDERS: ATTEND Internal Medicine
DX: N60.02 Solitary cyst of left breast (principal)